=== PATIENT | male | born 1985 | race Caucasian/White ===

== ENCOUNTER 2022-03-09 13:30 | Emergency (ER) | payer OTHER, SELFPAY ==
--- NOTE | 2022-03-09 13:35 | ED.SKABFB ---
HPI - Skin/Abscess/Foreign Bdy General Chief complaint: Skin/Abscess/Foreign Body Stated complaint: lump on ear Time Seen by Provider: 03/09/22 13:35 Source: patient and RN notes reviewed History of Present Illness HPI narrative: Patient is a 37-year-old male who presents to the facility with complaints of a right ear lump. States is been present for approximately 6 months and is nonpainful however has been bothering him slightly due to having to wear a headset at work . Patient has not seen a primary care doctor in some time and has never followed up for the nodule on the ear. No other acute complaints. No acute distress noted. Patient aware of the plan of care. Some parts of this dictation were generated by voice recognition software and may contain typographical and/or grammatical inaccuracies. Related Data Allergies Allergy/AdvReac Type Severity Reaction Status Date / Time No Known Allergies Allergy Unverified 07/06/18 13:30 Review of Systems Review of Systems: CONSTITUTIONAL: Denies fever, chills, or sweats. EYES: Denies visual changes, redness, or discharge. ENT: Denies rhinorrhea, congestion, sore throat, or otalgia. CARDIOVASCULAR: Denies chest pain, palpitations, or edema. RESPIRATORY: Denies cough or dyspnea. GASTROINTESTINAL: Denies abdominal pain, nausea, vomiting, or diarrhea. GENITOURINARY: Denies dysuria or hematuria. SKIN: Reports of a nonpainful lump to the right ear MUSCULOSKELETAL: Denies back pain, joint pain, or myalgia. NEUROLOGIC: Denies headache, numbness, or weakness. All other systems reviewed are negative, except as documented in HPI. PMFSH Comments At the time of my signature, I reviewed and agree with the nursing past medical, surgical, social, and family history. There is no relevant family history pertinent to the patient complaint. Exam Narrative: GENERAL: This is a well-nourished, well-developed patient, in no apparent distress. HEAD: normocephalic, atraumatic. EYES: PERRL. Sclera clear/white. Vision is grossly intact. EARS: External ears normal, auditory canals clear and without drainage, TMs normal without perforation. Hearing grossly intact. NOSE: External nose normal with no obvious nasal discharge, nares without redness, no rhinorrhea. THROAT: Mucous membranes moist NECK: Neck supple SKIN: Pea-sized firm sebaceous cyst to the right ear, upper helix. Warm, intact with no suspicious lesions or rash, good texture and turgor. NEURO: awake, alert, and oriented to person, place and time. There were no obvious focal neurologic abnormalities. EXTREMITIES: No clubbing, cyanosis, or edema. Course Course Level of Care: Express Care Visit Vital Signs Vital signs: Vital Signs Temperature 97.8 F 03/09/22 13:48 Pulse Rate 86 03/09/22 13:48 Respiratory Rate 16 03/09/22 13:48 Blood Pressure 133/87 03/09/22 13:48 Pulse Oximetry 98 03/09/22 13:48 Oxygen Delivery Room Air 03/09/22 13:48 Temperature 97.8 F 03/09/22 13:48 Pulse Rate 86 03/09/22 13:48 Respiratory Rate 16 03/09/22 13:48 Blood Pressure 133/87 03/09/22 13:48 Pulse Oximetry 98 03/09/22 13:48 Oxygen Delivery Room Air 03/09/22 13:48 Reviewed MDM - Skin/Abscess/Foreign Bdy MDM Narrative Medical decision making narrative: Advised the patient to follow-up with a nicker, Dr. Dolores Silverio in [place] . Area appears to be consistent with a sebaceous cyst. Would not advise trying to pop the area, remove it on your own, or pick on the area. These cysts are typically harmful and do not become infected if they are left alone. Advised patient to follow-up with the referred primary care doctor for further evaluation. Differential Diagnosis Differential diagnosis: Likely abscess of skin or subcutaneous tissue, viral exanthem, dermatophytosis, urticaria, allergic reaction to drug, cellulitis, eczema, insect bites and impetigo Discharge Plan Discharge Clinical Impression: [facility]
[2022-03-09 13:48] VITALS: BP 133/87; PULSE 86; RESP 16; TEMP 36.6; O2SAT 98
== END 2022-03-09 14:06 | disposition home or self-care (01) ==
PROVIDERS: Emergency Provider Nurse Practitioner Family
DX: L72.3 Sebaceous cyst (principal); Z98.52 Vasectomy status
CPT/HCPCS: 99211; G0463